=== PATIENT | female | born 1990 | race Asian ===

== ENCOUNTER 2021-03-21 07:09 | Emergency (ER) | payer BC ==
[~2021-03-21] VITALS: Ht 157.5 cm; Wt 56.8 kg
[2021-03-21] MEDS ORDERED: IBUPROFEN100 MG PO (07:44)
--- NOTE | 2021-03-22 13:41 | EKG ---
[facility] [address] [place], [place] [address] Signed Sinus tachycardia Otherwise normal ECG No previous ECGs available Confirmed by KIMBERLY CARRIZALES MD ([id number] on 03/22/2021 1:41:06 PM Electronically Signed By: KIMBERLY CARRIZALES MD 03/22/21 1341 PATIENT NAME: APARNA WHEELER Electrocardiogram DATE OF : 89 PHYSICIAN: KIMBERLY CARRIZALES MD REPORT #: [id number] REPORT IS CONFIDENTIAL AND NOT TO BE RELEASED WITHOUT AUTHORIZATION
== END 2021-03-22 01:10 | disposition short-term general hospital (02) ==
LOC: ED 07:09
DX: K76.9 Liver disease, unspecified (principal); I81 Portal vein thrombosis; R18.8 Other ascites; Z20.822 Contact with and (suspected) exposure to COVID-19
CPT/HCPCS: 71045; 71260; 74178; 76705; 80048; 80053; 81001; 82140; 83605; 83690; 83735; 84484; 84703; 85025; 85379; 85610; 93005; 93010; 99285-25; A9270; C9803; J1885; J2270; J2405; J2543; J7030; Q9967; U0003